=== PATIENT | female | born 1970 | race Caucasian/White ===

== ENCOUNTER 2018-07-31 09:54 | Outpatient (CLI) | payer OTHER ==
[~2018-07-31 09:54] MED LIST: DICY20TA PO; PREVACID30 MG; ZANTAC150 MG PO
== END 2018-07-31 09:56 | disposition home or self-care (01) ==
LOC: SONOGRAMA 09:54
DX: D25.9 Leiomyoma of uterus, unspecified (principal)

== ENCOUNTER 2018-09-13 10:00 | Inpatient (IN) | payer OTHER ==
[~2018-09-13] VITALS: Ht 152.4 cm; Wt 61.2 kg
[2018-09-13] MEDS ORDERED: CLONAZEPAM1 M1 PO (16:12)
[2018-09-13] MEDS ORDERED: RESTORIL30 M1 PO (16:17)
[2018-09-13] MEDS ORDERED: LEVOXYL25 MCG PO (16:18)
== END 2018-09-20 17:50 | disposition home or self-care (01) | DRG 743 ==
LOC: SURH 10:00 → O/R 09-17 08:33 → OB/GYN 09-17 08:33 → SURH 09-17 10:00 → OB/GYN 09-17 15:50
PROVIDERS: ADMIT Obstetrics & Gynecology Obstetrics
PROC: 0UT90ZZ Resection of Uterus, Open Approach (ICD-10-PCS; principal; 2018-09-17 06:30)
DX: D25.1 Intramural leiomyoma of uterus (principal); N72 Inflammatory disease of cervix uteri

== ENCOUNTER 2018-11-01 11:58 | Emergency (ER) | payer OTHER ==
[~2018-11-01] VITALS: Ht 152.4 cm; Wt 61.2 kg
[~2018-11-01 11:58] MED LIST changes: +CLONAZEPAM1 M1 PO; +LEVOXYL25 MCG PO; +RESTORIL30 M1 PO
== END 2018-11-01 14:47 | disposition home or self-care (01) ==
LOC: ER 11:58
DX: R19.7 Diarrhea, unspecified (principal)

== ENCOUNTER 2020-07-12 10:37 | Inpatient (IN) | payer OTHER ==
[~2020-07-12] VITALS: Wt 5.0 kg
[2020-07-27] MEDS ORDERED: BUTALB-ACETAMI1 EAC2 (09:13)
== END 2020-07-28 10:15 | disposition home or self-care (01) | DRG 690 ==
LOC: ER 10:37 → MEDI 19:04 → SEC-K 19:04 → MEDI 07-13 03:32 → SEC-K 07-13 05:56 → MEDI 07-13 05:57
PROVIDERS: ADMIT Internal Medicine; ATTEND Internal Medicine
PROC: BW4GZZZ Ultrasonography of Pelvic Region (ICD-10-PCS; 2020-07-12)
PROC: BW21Y0Z Computerized Tomography (CT Scan) of Abdomen and Pelvis using Other Contrast, Unenhanced and Enhanced (ICD-10-PCS; 2020-07-12)
PROC: BW30Y0Z Magnetic Resonance Imaging (MRI) of Abdomen using Other Contrast, Unenhanced and Enhanced (ICD-10-PCS; 2020-07-13)
PROC: BW3GZZZ Magnetic Resonance Imaging (MRI) of Pelvic Region (ICD-10-PCS; 2020-07-14)
PROC: 0W9J3ZX Drainage of Pelvic Cavity, Percutaneous Approach, Diagnostic (ICD-10-PCS; principal; 2020-07-17)
PROC: BW2GZZZ Computerized Tomography (CT Scan) of Pelvic Region (ICD-10-PCS; 2020-07-17)
PROC: BW3GY0Z Magnetic Resonance Imaging (MRI) of Pelvic Region using Other Contrast, Unenhanced and Enhanced (ICD-10-PCS; 2020-07-23)
PROC: BR39Y0Z Magnetic Resonance Imaging (MRI) of Lumbar Spine using Other Contrast, Unenhanced and Enhanced (ICD-10-PCS; 2020-07-23)
PROC: 02HV33Z Insertion of Infusion Device into Superior Vena Cava, Percutaneous Approach (ICD-10-PCS; 2020-07-25)
PROC: 3E043KZ Introduction of Other Diagnostic Substance into Central Vein, Percutaneous Approach (ICD-10-PCS; 2020-07-25)
PROC: BW4GZZZ Ultrasonography of Pelvic Region (ICD-10-PCS; 2020-07-25)
PROC: B030ZZZ Magnetic Resonance Imaging (MRI) of Brain (ICD-10-PCS; 2020-07-27)
DX: N39.0 Urinary tract infection, site not specified (principal); R19.00 Intra-abdominal and pelvic swelling, mass and lump, unspecified site; R10.9 Unspecified abdominal pain; N92.4 Excessive bleeding in the premenopausal period; N94.89 Other specified conditions associated with female genital organs and menstrual cycle; K57.90 Diverticulosis of intestine, part unspecified, without perforation or abscess without bleeding; Z20.822 Contact with and (suspected) exposure to COVID-19
CPT/HCPCS: 70544; 70545; 72149; 72198; 74182

== ENCOUNTER 2020-09-28 17:26 | Emergency (ER) | payer OTHER ==
[~2020-09-28] VITALS: Ht 152.4 cm; Wt 62.6 kg
[~2020-09-28 17:26] MED LIST changes: +BUTALB-ACETAMI1 EAC2
[2020-09-28] MEDS ORDERED: FIORICET (17:45)
[2020-09-28] MEDS ORDERED: RESTORIL30 MG (17:45)
[2020-09-28] MEDS ORDERED: BUTALBITAL-ACE1 EAC2 (19:49)
[2020-09-29] MEDS ORDERED: INTESTINEX680 M1 PO (02:45)
[2020-09-29] MEDS ORDERED: PEPCID20 MG PO (03:06)
[2020-09-29] MEDS ORDERED: KETO10TA2 PO (03:06)
== END 2020-09-29 03:08 | disposition home or self-care (01) ==
LOC: ER 17:26
DX: R19.7 Diarrhea, unspecified (principal); R10.2 Pelvic and perineal pain; R10.84 Generalized abdominal pain

== ENCOUNTER 2021-03-04 13:56 | Emergency (ER) | payer OTHER ==
[~2021-03-04] VITALS: Ht 152.4 cm; Wt 59.0 kg
[~2021-03-04 13:56] MED LIST changes: +BUTALBITAL-ACE1 EAC2; +FIORICET; +INTESTINEX680 M1 PO; +KETO10TA2 PO; +PEPCID20 MG PO; +RESTORIL30 MG
[2021-03-04] MEDS ORDERED: BENZONATATE200 M1 PO (17:47)
== END 2021-03-04 17:53 | disposition home or self-care (01) ==
LOC: ER 13:56
DX: R05 Cough (principal); R53.81 Other malaise; Z03.818 Encounter for observation for suspected exposure to other biological agents ruled out

== ENCOUNTER → 2021-08-21 | Emergency (ER) | payer OTHER ==
[~2021-08-21] MED LIST changes: +BENZONATATE200 M1 PO
== END | disposition left against medical advice (07) ==
LOC: ER 19:57
DX: Z53.21 Procedure and treatment not carried out due to patient leaving prior to being seen by health care provider (principal)

== ENCOUNTER 2021-10-23 13:26 | Emergency (ER) | payer OTHER ==
[~2021-10-23] VITALS: Ht 152.4 cm; Wt 68.5 kg
[2021-10-23] MEDS ORDERED: VISTARIL50 MG PO (13:39)
[2021-10-23] MEDS ORDERED: TAMS0.4C PO (18:34)
[2021-10-23] MEDS ORDERED: MACROBID 100 M100 MG PO (18:35)
== END 2021-10-23 18:47 | disposition home or self-care (01) ==
LOC: ER 13:26
DX: N30.90 Cystitis, unspecified without hematuria (principal); K58.0 Irritable bowel syndrome with diarrhea; N23 Unspecified renal colic; I10 Essential (primary) hypertension; E03.9 Hypothyroidism, unspecified; G82.20 Paraplegia, unspecified; Z88.1 Allergy status to other antibiotic agents

== ENCOUNTER 2021-11-06 12:44 | Emergency (ER) | payer OTHER ==
[~2021-11-06] VITALS: Ht 152.4 cm; Wt 61.2 kg
[~2021-11-06 12:44] MED LIST changes: +MACROBID 100 M100 MG PO; +TAMS0.4C PO; +VISTARIL50 MG PO
[2021-11-06] MEDS ORDERED: PEPCID AC20 MG PO (18:09)
[2021-11-06] MEDS ORDERED: CARAFATE1 GM PO (18:09)
[2021-11-06] MEDS ORDERED: LEVSIN/SL0.125 MG SL (18:09)
== END 2021-11-06 19:47 | disposition home or self-care (01) ==
LOC: ER 12:44
DX: R10.9 Unspecified abdominal pain (principal); Z20.822 Contact with and (suspected) exposure to COVID-19

== ENCOUNTER 2023-05-13 09:17 | Emergency (ER) | payer OTHER ==
[~2023-05-13] VITALS: Ht 152.4 cm; Wt 54.9 kg
[~2023-05-13 09:17] MED LIST changes: +CARAFATE1 GM PO; +ESCITALOPRAM OX10 MG; +LEVSIN/SL0.125 MG SL; +PANTOPRAZOLE SO40 MG; +PEPCID AC20 MG PO; +ZOLPIDEM TARTRA10 MG
[2023-05-13] MEDS ORDERED: CLONAZEPAM1 MG PO (09:48)
[2023-05-13] MEDS ORDERED: LEVOTHYROXINE25 MCG PO (09:49)
[2023-05-13 12:39] LABS: HEMATOCRIT 40.1 % (36.0-45.00); HEMOGLOBIN 13.2 g/dL (12.0-15.00); MEAN CORPUSCULAR HEMOGLOBIN 28.8 pg (27.00-32.0); PLATELET COUNT 313 K/uL (150-450); RED CELL DISTRIBUTION WIDTH 14.4 % (11.5-14.5)
== END 2023-05-13 17:04 | disposition home or self-care (01) ==
LOC: ER 09:17
PROVIDERS: General Practice
DX: K58.8 Other irritable bowel syndrome (principal); Z88.2 Allergy status to sulfonamides; Z87.19 Personal history of other diseases of the digestive system
CPT/HCPCS: 36415; 96365; 99284; J1885